=== PATIENT | male | born 1990 | race African-American/Black ===

== ENCOUNTER 2022-02-05 20:14 | Emergency (ER) | payer OTHER ==
[~2022-02-05] VITALS: Ht 175.3 cm; Wt 72.6 kg
[2022-02-05] MEDS ORDERED: BENADRYL ITCH C59 ML TOP (23:46)
[2022-02-05] MEDS ORDERED: BENADRYL25 MG PO (23:55)
== END 2022-02-06 00:10 | disposition home or self-care (01) ==
LOC: ER 20:14
DX: R21 Rash and other nonspecific skin eruption (principal)

== ENCOUNTER 2022-04-16 18:09 | Emergency (ER) | payer OTHER ==
[~2022-04-16] VITALS: Ht 162.6 cm; Wt 61.2 kg
[~2022-04-16 18:09] MED LIST: BENADRYL ITCH C59 ML TOP; BENADRYL25 MG PO
== END 2022-04-16 22:13 | disposition left against medical advice (07) ==
LOC: ER 18:09
DX: Z53.21 Procedure and treatment not carried out due to patient leaving prior to being seen by health care provider (principal)

== ENCOUNTER 2022-10-07 09:56 | Emergency (ER) | payer OTHER ==
[~2022-10-07] VITALS: Ht 162.6 cm; Wt 72.1 kg
[2022-10-07] MEDS ORDERED: MUCINEX D ER 11 EACH PO (13:51)
[2022-10-07] MEDS ORDERED: DOLOGEN 325-11 EACH PO (13:51)
== END 2022-10-07 14:18 | disposition home or self-care (01) ==
LOC: ER 09:56
DX: B34.9 Viral infection, unspecified (principal); Z20.822 Contact with and (suspected) exposure to COVID-19; Z88.6 Allergy status to analgesic agent